=== PATIENT | male | born 1945 | race Caucasian/White ===

== ENCOUNTER 2022-10-01 12:14 | Day surgery (SDC) | payer MEDICARE ==
[~2022-10-01] VITALS: Ht 170.2 cm; Wt 79.7 kg
[~2022-10-01 12:14] MED LIST: ONDA4 PO
[2022-10-01] MEDS ORDERED: GABA300 PO (13:13)
[2022-10-01] MEDS ORDERED: GEMF600 PO (13:13)
[2022-10-01] MEDS ORDERED: RYBELSUS7 MG PO (13:14)
[2022-10-01] MEDS ORDERED: LEVOTHYROXINE75 MC9 PO (13:14)
[2022-10-01] MEDS ORDERED: METF500 PO (13:14)
[2022-10-01] MEDS ORDERED: ASPI81CH PO (13:15)
--- NOTE | 2022-10-01 13:31 | NUR ---
10/01/22 1331 [address] CALL LIGHT WITHIN REACH. TERTRACAINE IN 1314 IN LEFT EYE, PLEDGETT IN LEFT EYE AT 1315.
[2022-10-01 14:27] VITALS: BP 126/79
== END 2022-10-01 14:44 | disposition home or self-care (01) ==
LOC: ORSCSDS 12:14
PROVIDERS: Ophthalmology
PROC: 08DK3ZZ Extraction of Left Lens, Percutaneous Approach (ICD-10-PCS; principal; 2022-10-01 14:00)
DX: E11.36 Type 2 diabetes mellitus with diabetic cataract (principal); H25.12 Age-related nuclear cataract, left eye; E03.9 Hypothyroidism, unspecified; Z79.82 Long term (current) use of aspirin; Z79.84 Long term (current) use of oral hypoglycemic drugs; Z79.899 Other long term (current) drug therapy
CPT/HCPCS: 82947; J2001; J2250; J3010; J3301; J7040; V2632

== ENCOUNTER → 2024-08-14 | Outpatient (CLI) | payer MEDICARE ==
[~2024-08-14] MED LIST changes: +ASPI81CH PO; +GABA300 PO; +GEMF600 PO; +LEVOTHYROXINE75 MC9 PO; +METF500 PO; +RYBELSUS7 MG PO
[2024-08-16 14:38] LABS: Protein, Urine Quantitative 8.5 mg/dL (0.0-11.9)
== END ==
LOC: LAB 16:00 → LAB SHORT 16:00
PROVIDERS: Internal Medicine
DX: R63.8 Other symptoms and signs concerning food and fluid intake (principal)
CPT/HCPCS: 81050; 84156

== ENCOUNTER 2025-01-21 12:57 | Emergency (ER) | payer MEDICARE ==
[~2025-01-21] VITALS: Ht 167.6 cm; Wt 79.4 kg
[~2025-01-21 12:57] MED LIST changes: +BASAGLAR K100 UNIT/8 SC; +INSULIN GL100 UNIT/2 SQ; +Prinivil10 MG PO; +TAMSULOSIN HCL0.4 M1 PO
[2025-01-21 13:59] LABS: BASOPHILS ABSOLUTE AUTO 0.03 K/mm3 (0.00-0.23); BASOPHILS PERCENT AUTO 0 % (0-2); EOSINOPHILS ABSOLUTE AUTO 0.01 K/mm3 (0.00-0.68); EOSINOPHILS PERCENT AUTO 0 % (0-6); Hematocrit 44.3 % (37.0-53.0); Hemoglobin 14.9 g/dL (13.5-17.5); IMMATURE GRAN ABSOLUTE AUTO 0.02 K/mm3 (0.00-0.10); IMMATURE GRAN PERCENT AUTO 0 % (0-1); LYMPHOCYTES ABSOLUTE AUTO 1.37 K/mm3 (0.84-5.20); LYMPHOCYTES PERCENT AUTO 19 % (21-46); MONOCYTES ABSOLUTE AUTO 0.36 K/mm3 (0.16-1.47); MONOCYTES PERCENT AUTO 5 % (4-13); Mean Corpuscular HGB Conc 33.6 g/dL (31.5-36.5); Mean Corpuscular Volume 91 fL (80-100); NEUTROPHILS ABSOLUTE AUTO 5.26 K/mm3 (1.96-9.15); NEUTROPHILS PERCENT AUTO 75 % (41-73); NRBC ABSOLUTE 0.00 K/mm3 (0.00-0.02); NRBC Auto 0.0 /100 WBC (0.0-0.2); Platelet Count 219 K/mm3 (150-400); RDW Coefficient Variation 13.8 % (11.7-14.2); RDW Standard Deviation 46.8 fL (35.1-46.3)
[2025-01-21 14:32] LABS: Alanine Aminotransfer (ALT/SGP 34.0 U/L (12-78); Albumin, Blood 3.7 g/dL (3.4-5.0); Albumin/Globulin Ratio 0.9 (0.8-1.8); Anion Gap 12.0 mmol/L (3-11); Aspartate Aminotrans (AST/SGOT 35.0 U/L (12-37); Bilirubin, Total 0.6 mg/dL (0.1-1.0); Blood Urea Nitrogen 15.0 mg/dL (8-24); CO2, Blood 21.0 mmol/L (21-32); Calcium, Blood 9.0 mg/dL (8.5-10.1); Chloride, Blood 110.0 mmol/L (98-108); Creatinine, Blood 0.69 mg/dL (0.60-1.20); Globulin, Blood 4.2 g/dL (2.2-4.0); Glucose, Blood 174.0 mg/dL (70-99); Potassium, Blood 3.6 mmol/L (3.5-5.5); Sodium, Blood 139.0 mmol/L (136-145); Total Protein, Blood 7.9 g/dL (6.4-8.2)
[2025-01-21] MEDS ORDERED: NS 1,000 ML IV SCH (16:25)
[2025-01-21 16:30] VITALS: BP 146/83
== END 2025-01-21 18:03 | disposition home or self-care (01) ==
LOC: ER 12:57
PROVIDERS: Student in an Organized Health Care Education/Training Program
DX: R53.1 Weakness (principal); R42 Dizziness and giddiness; E11.9 Type 2 diabetes mellitus without complications
CPT/HCPCS: 71046; 80053; 84484; 85025; 93005; 93010; 99285-25; J7030